=== PATIENT | female | born 1950 | race African-American/Black ===

== ENCOUNTER 2022-02-02 16:01 | Inpatient (IN) | payer MEDICARE, MEDICAID ==
[~2022-02-02] VITALS: Ht 165.1 cm; Wt 68.9 kg
[2022-02-02 16:43] LABS: BASOPHILS % 0.4 % (0.0-2.0); EOSINOPHILS % 1.1 % (0.0-5.0); HEMATOCRIT. 40.9 % (36.0-48.0); HEMOGLOBIN. 13.5 g/dL (12.0-16.0); LYMPHOCYTES % 22.2 % (20.0-50.0); MEAN CORPUSCULAR HEMOGLOBIN 28.7 pg (28.0-32.0); MEAN CORPUSCULAR VOLUME 87.2 fL (81.0-99.0); MONOCYTES % 5.7 % (2.0-8.0); NEUTROPHILS % 70.6 % (40.0-76.0); PLATELET 247 x1000/uL (130-400); RED BLOOD CELL COUNT 4.69 mill/uL (4.2-5.4); RED CELL DISTRIBUTION WIDTH 14.5 % (11.6-14.6)
[2022-02-02 16:49] LABS: CHLORIDE 96 mEq/L (98-107)
[2022-02-02 16:54] LABS: ETHANOL BLOOD < 10 mg/dL
[2022-02-02] MEDS ORDERED: INSULIN REGULAR (DRIP) 100 UNITS in SODIUM CHLORIDE 0.9% 100 ML IV ONE (17:15)
[2022-02-02] MEDS ORDERED: SODIUM CHLORIDE 0.9% 1,000 ML IV ONE (17:15)
[2022-02-02] MEDS ORDERED: KCL 20MEQ/100ML PREMIX 100 ML IV ONE (17:15)
[2022-02-02] MEDS ORDERED: INSULIN REGULAR (HUMULIN R) 300UNITS/3ML VIAL IV ONE (17:15)
[2022-02-02 17:43] LABS: PHOSPHORUS 2.5 mg/dL (2.5-4.9)
[2022-02-02 17:45] LABS: BETA HYDROXYBUTYRATE 0.2 mMol/L (0.0-0.3)
[2022-02-02] MEDS ORDERED: AMLODIPINE 5MG TABLET PO ONE (18:45)
[2022-02-02] MEDS ORDERED: CEFTRIAXONE 1 G PREMIX 50 ML IV ONE (19:00)
[2022-02-02 19:54] LABS: CHLORIDE 101 mEq/L (98-107)
[2022-02-02 21:10] LABS: CHLORIDE 103 mEq/L (98-107)
[2022-02-02 22:40] LABS: CHLORIDE 103 mEq/L (98-107)
[2022-02-03 00:33] LABS: CHLORIDE 104 mEq/L (98-107)
[2022-02-03] MEDS ORDERED: ONDANSETRON HCL 4MG/2ML INJ IV PRN (12:45)
[2022-02-03] MEDS ORDERED: DOCUSATE SODIUM 100MG CAPSULE PO PRN (12:45)
[2022-02-03] MEDS ORDERED: HYDROCODONE/ACETAMINOPHEN 5/325MG TABLET PO PRN (12:45)
[2022-02-03] MEDS ORDERED: GUAIFENESIN 200MG/10ML SUGAR FREE UDC PO PRN (12:45)
[2022-02-03] MEDS ORDERED: MAGNESIUM/ALUMINUM HYDROXIDE/SIMETHICONE 30ML UDC PO PRN (12:45)
[2022-02-03] MEDS: ENOXAPARIN 40MG/0.4ML SYR SUBCUT SCH (14:32)
[2022-02-03] MEDS: SODIUM CHLORIDE 0.45% 1,000 ML IV SCH (14:35)
[2022-02-03] MEDS ORDERED: HYDRALAZINE 20MG/ML VIAL IV PRN (15:30)
[2022-02-03] MEDS ORDERED: DEXTROSE 50% WATER 50ML SYRINGE IV PRN (16:15)
[2022-02-03] MEDS: BLOOD SUGAR DIAGNOSTIC STRIP TEST SCH ×3 (16:59→21:06)
[2022-02-03 17:00] VITALS: BP 145/66
[2022-02-03] MEDS ORDERED: NALOXONE HCL 0.4MG/ML VIAL IV PRN (17:15)
[2022-02-03] MEDS: INSULIN LISPRO 100 UNITS/ML SUBCUT SCH ×2 (17:29→21:14)
[2022-02-03 18:00] VITALS: BP 145/66
[2022-02-03] MEDS ORDERED: LOSA50TA41 MT (18:50)
[2022-02-03] MEDS ORDERED: INSU100I28 SQ (18:50)
[2022-02-03 20:00] VITALS: BP 159/72
[2022-02-03] MEDS ORDERED: PNEUMOCOCCAL 23-VAL P-SAC VAC 0.5 ML IM ONE (20:00)
[2022-02-03] MEDS: INSULIN GLARGINE UD 100 UNITS/ML SYR SUBCUT SCH (21:55)
[2022-02-04] VITALS: BP 139/58
[2022-02-04 04:00] VITALS: BP 156/82
[2022-02-04] MEDS: BLOOD SUGAR DIAGNOSTIC STRIP TEST SCH ×4 (06:37→20:41)
[2022-02-04] MEDS: SODIUM CHLORIDE 0.45% 1,000 ML IV SCH ×2 (06:39→15:47)
[2022-02-04] MEDS: INSULIN LISPRO 100 UNITS/ML SUBCUT SCH ×4 (06:45→20:42)
[2022-02-04 07:36] LABS: EOSINOPHILS % 3.6 % (0.0-5.0); HEMATOCRIT. 38.8 % (36.0-48.0); MEAN CORPUSCULAR HEMOGLOBIN 28.7 pg (28.0-32.0); MEAN CORPUSCULAR VOLUME 85.7 fL (81.0-99.0); MEAN PLATELET VOLUME 10.1 fl (7.4-10.4); MONOCYTES % 9.4 % (2.0-8.0); PLATELET 231 x1000/uL (130-400); RED BLOOD CELL COUNT 4.52 mill/uL (4.2-5.4); RED CELL DISTRIBUTION WIDTH 14.5 % (11.6-14.6)
[2022-02-04 07:46] LABS: CHLORIDE 103 mEq/L (98-107)
[2022-02-04 08:00] VITALS: BP 142/80
[2022-02-04] MEDS: INSULIN GLARGINE UD 100 UNITS/ML SYR SUBCUT SCH (10:31)
[2022-02-04 12:00] VITALS: BP 163/74
[2022-02-04] MEDS: ENOXAPARIN 40MG/0.4ML SYR SUBCUT SCH (14:05)
[2022-02-04] MEDS ORDERED: HYDRALAZINE HCL 50MG TABLET PO NR (15:11)
[2022-02-04 15:32] VITALS: BP 158/70
[2022-02-04 20:00] VITALS: BP 100/69
[2022-02-05] VITALS: BP 130/80
[2022-02-05 04:00] VITALS: BP_SYST 140; BP_SYST 150; BP_DIAS 68; BP_DIAS 86
[2022-02-05] MEDS: SODIUM CHLORIDE 0.45% 1,000 ML IV SCH (04:45)
[2022-02-05] MEDS: BLOOD SUGAR DIAGNOSTIC STRIP TEST SCH ×2 (06:25→12:16)
[2022-02-05] MEDS: INSULIN LISPRO 100 UNITS/ML SUBCUT SCH ×2 (06:27→12:30)
[2022-02-05 08:00] VITALS: BP 172/82
[2022-02-05] MEDS: INSULIN GLARGINE UD 100 UNITS/ML SYR SUBCUT SCH (10:36)
[2022-02-05 11:17] VITALS: BP 159/60
[2022-02-05 12:00] VITALS: BP 159/78
[2022-02-05] MEDS ORDERED: HYDRALAZINE HCL 50MG TABLET PO SCH (12:00)
[2022-02-05] MEDS: ENOXAPARIN 40MG/0.4ML SYR SUBCUT SCH (12:29)
== END 2022-02-05 13:15 | disposition home health service (06) | DRG 420 ==
LOC: ER 16:01 → MICUSO 18:57 → EDBEDREQ 19:04 → EDBEDREQSVC 19:04 → EDBEDREQTM 19:04 → EDBEDREQSVC 02-03 13:18 → 8WST 02-03 17:04
PROVIDERS: ADMIT Hospitalist; ATTEND Hospitalist
DX: E11.65 Type 2 diabetes mellitus with hyperglycemia (principal); F03.90 Unspecified dementia, unspecified severity, without behavioral disturbance, psychotic disturbance, mood disturbance, and anxiety; E87.1 Hypo-osmolality and hyponatremia; R55 Syncope and collapse; I10 Essential (primary) hypertension; I16.0 Hypertensive urgency; M41.9 Scoliosis, unspecified; Z20.822 Contact with and (suspected) exposure to COVID-19; R53.1 Weakness
CPT/HCPCS: 36415; 71045; 72170; 80048; 80053; 80320; 82010; 82962; 83605; 83735; 83880; 84100; 84443; 84484; 85025; 87426; 90732; 93306; 93970; 97162; 99285; A6261; J0360; J0696; J1650; J1815; J3480; J7030; J7050; G0480